=== PATIENT | female | born 1945 | race Caucasian/White ===

== ENCOUNTER 2020-08-27 08:04 | Observation (INO) | payer OTHER ==
[~2020-08-27] VITALS: Ht 165.1 cm; Wt 112.5 kg
--- NOTE | 2020-08-27 09:02 | EKG ---
[address] [address] ELECTROCARDIOGRAM REPORT Name: LAQUITA RIVERA Room #: [facility]#: [id number] Admission: 08/27/20 Attend Phys: Herbert Zhao MD, Discharge: Date of : 47 Report #: [id number] [facility] Test Date: 2020-08-27 Test Time: 08:32:05 Pat Name: LAQUITA RIVERA Department: Room: Gender: F Mounter [employer]arin[employer]: [facility] : 1945 Requested By: Herbert Zhao Order Number: [id number] MD: Antwon Wilkinson Measurements Intervals [place] Rate: 92 P: NC: QRS: 25 QRSD: 107 T: 242 QT: 344 QTc: 426 Interpretive Statements nsr LVH with secondary repolarization abnormality Compared to ECG 11/27/2002 10:23:38 Left ventricular hypertrophy now present Early repolarization now present Electronically Signed On 08-27-2020 9:02:05 CDT by Antwon Wilkinson [email or web address] <ELECTRONICALLY SIGNED> By: Antwon Wilkinson MD, [facility] 08/27/2002 1 1 Antwon Wilkinson MD, FACC /EPI
[2020-08-27] MEDS ORDERED: ALLOPURINOL 30300 M1 PO (09:43)
[2020-08-27] MEDS ORDERED: NORVASC10 MG PO (09:43)
[2020-08-27] MEDS ORDERED: CARBIDOPA-LEVO1 EAC5 PO (09:44)
[2020-08-27] MEDS ORDERED: CATAPRES-TTS 20.2 MG PO (09:44)
[2020-08-27] MEDS ORDERED: NEURONTIN100 MG PO (09:45)
[2020-08-27] MEDS ORDERED: FLONASE 0.05%50 MCG NASAL (09:46)
[2020-08-27] MEDS ORDERED: LASIX 40 MG TAB40 MG PO (09:47)
[2020-08-27] MEDS ORDERED: HYDROCHLOROTHIA25 M1 PO (09:47)
[2020-08-27] MEDS ORDERED: LEVO-T25 MCG PO (09:48)
[2020-08-27] MEDS ORDERED: LEVO-T100 MCG PO (09:48)
[2020-08-27] MEDS ORDERED: PRILOSEC OTC20 MG PO (09:49)
[2020-08-27] MEDS ORDERED: LOPRESSOR50 MG PO (09:49)
[2020-08-27] MEDS ORDERED: SYMBICORT160 MCG/4. INH (09:50)
[2020-08-27] MEDS ORDERED: TIZANIDINE HCL2 M1 PO (09:50)
[2020-08-27] MEDS ORDERED: ZYRTEC10 M5 PO (09:51)
[2020-08-27] MEDS ORDERED: PROAIR HFA8.5 GM INH (09:51)
[2020-08-27] MEDS ORDERED: LIPITOR40 MG PO (09:52)
--- NOTE | 2020-08-27 18:17 | CATHLAB ---
[facility] [place] [address] INVASIVE PROCEDURE REPORT Name: LAQUITA RIVERA Room #: 150-1 ADM Aamir Oleary#: [id number] Admission: 08/27/20 Attend Phys: Herbert Zhao MD, Discharge: Date of : 47 Report #: [id number] THIS REPORT FOR: cc: Lon Montgomery James R. DO Mancuso, Gerald M. MD [facility] ~ APPROVED REPORT Study performed: 08/27/2020 09:52:57 Patient Details Patient Status: Out-Patient Room #: The patient is a 74 year-old female Event Personnel Herbert Zhao Home Security Alarm Installer, Sukhi Obrien RN RN, Joana Ricks RTR, P[employer]ER [employer] DRYING MACHINE OPERATOR Monitor, Dinorah Simmons RTR Scrub Procedures Performed Art Access - R femoral artery* Douglas Access - R femoral vein Right and Left Heart Cath w/or w/o Coronarie [id number] [facility] 20129 Initial Mod Sed Same Phys/QHP Gr5y 907009 07833 Mod Sed Same Phys/QHP Ea 270900 Hemostasis w/ Mynx Hemostasis with Manual pressure Abdominal Aortography 720684 Indication Dyspnea, Positive stress test Procedure Narrative The Right Groin^ was infiltrated with 1% Lidocaine subcutaneous anesthesia. A PINNACLE 6FR Sheath #[id number] sheath was inserted into the RFA. Coronary angiography was performed using coronary diagnostic catheters. The right coronary system was accessed and visualized with a JR4 catheter. The left coronary system was accessed and visualized with a JL4 catheter. The left ventricle was accessed and visualized with a PIGTAIL catheter. Left ventriculogram was performed in 30 degree projection. An aortogram of the abdominal aorta was performed. Closure device was deployed with a 6 Fr MYNX CONTROL 6F/7F L#[id number]. Hemostasis was obtained with manual pressure following sheath removal without any complications. The patient tolerated the procedure well and there were no complications associated with the procedure. There was no hematoma. [facility] [address] [place] [address] INVASIVE PROCEDURE REPORT Name: LAQUITA RIVERA Room #: 150-1 [facility].#: [id number] Admission: 08/27/20 Attend Phys: Herbert Zhao, Discharge: Date of : 47 Report #: [id number] Intraoperative Conscious Sedation Sedation start time: 10:41 Case end Time: 11:23 Fentanyl 100 mcg Versed 2.0 mg Fluoro Time: 1.46 minutes Dose: DAP 3758.10 cGycm2 393 mGy Contrast Type and Amount: Omnipaque 105 ml Hemodynamics The right atrial mean pressure is 7 mmHg. The right ventricular pressure is 40/4 mmHg. The pulmonary artery pressure is 43/17 mmHg with a mean of 26 mmHg. The mean pulmonary capillary wedge pressure is 12 mmHg. The aortic pressure is 183/75 mmHg with a mean of 117 mmHg. The left ventricular pressure is 142/9 mmHg with a mean of mmHg. The left ventricular end diastolic pressure is 17 mmHg. The cardiac output using thermo method is 6.25 L/min. The cardiac index using thermo method is 2.88 L/min/m2. Conclusion #1. Successful right heart catheterization with cardiac output by thermodilution. #2 normal left ventricular size and systolic function EF 60%. #3 abdominal aortogram mild plaquing but no aneurysm or significant stenosis. #4 Short moderate size left main free of disease giving rise to LAD and circumflex. #5 LAD with an eccentric proximal mid vessel lesion 30 to 40% mildly diseased otherwise. #6 large dominant circumflex artery proximal calcification no occlusive disease. #7 small nondominant right coronary artery. Recommendations and plan: Continue aggressive risk factor modification no indication for coronary intervention. Right-sided pressures are not elevated. Follow-up with Dr. Marcie Anand. <ELECTRONICALLY SIGNED> By: Herbert Zhao MD, FACC 08/27/201816 16 16 Herbert Zhao MD, FACC /INF
== END 2020-08-27 13:55 | disposition home or self-care (01) ==
LOC: CATH 08:04 → TBA 10:12 → CATH 11:21 → TBA 13:55
PROVIDERS: ADMIT Internal Medicine Cardiovascular Disease; ATTEND Internal Medicine Cardiovascular Disease
DX: I25.10 Atherosclerotic heart disease of native coronary artery without angina pectoris (principal); I11.0 Hypertensive heart disease with heart failure; I50.9 Heart failure, unspecified; J44.9 Chronic obstructive pulmonary disease, unspecified; E78.00 Pure hypercholesterolemia, unspecified; E03.9 Hypothyroidism, unspecified; R60.9 Edema, unspecified; G20 Parkinson's disease; M10.9 Gout, unspecified; G47.33 Obstructive sleep apnea (adult) (pediatric); E66.01 Morbid (severe) obesity due to excess calories; Z68.41 Body mass index [BMI] 40.0-44.9, adult; Z79.82 Long term (current) use of aspirin; Z79.899 Other long term (current) drug therapy